=== PATIENT | male | born 1990 | race Hispanic/Latino ===

== ENCOUNTER 2017-04-18 08:42 | Emergency (ER) | payer MEDICAID ==
[2017-04-18] MEDS ORDERED: HYDROCODONE/ACETAMINOPHEN 10/325 MG TAB ONE (08:54)
[2017-04-18] MEDS ORDERED: TETANUS/DIPHTHERIA TOXOID [ADULT] 0.5 ML VIAL IM ONE (08:54)
== END 2017-04-18 10:12 | disposition home or self-care (01) ==
LOC: EDH 08:42
DX: S40.812A Abrasion of left upper arm, initial encounter (principal); S20.319A Abrasion of unspecified front wall of thorax, initial encounter; S30.810A Abrasion of lower back and pelvis, initial encounter; J45.909 Unspecified asthma, uncomplicated; V49.49XA Driver injured in collision with other motor vehicles in traffic accident, initial encounter; Y93.9 Activity, unspecified; Y92.89 Other specified places as the place of occurrence of the external cause; Y99.8 Other external cause status
CPT/HCPCS: 71045; 72100; 72170; 73060; 90471; 90714